=== PATIENT | male | born 1955 | race Caucasian/White ===

== ENCOUNTER 2017-09-17 17:17 | Inpatient (IN) | payer BC, MEDICARE ==
[~2017-09-17 17:17] MED LIST: ISOVUE-370 76%-LOCM 1 ML ONE
[2017-09-17 17:38] LABS: #Basophils 0.1 thou/uL (0.0-0.2); #Eosinphils 0.1 thou/uL (0.0-0.7); #Lymphocytes 2.4 thou/uL (1.20-3.40); #Monocytes 0.6 thou/uL (0.11-0.59); #Neutrophils 6.6 thou/uL (1.40-6.50); %Basophils 0.9 % (0.0-1.0); %Eosinophils 1.2 % (0.0-10.0); %Lymphocytes 24.2 % (21.0-51.0); %Monocytes 5.9 % (0.0-10.0); %Neutrophils 67.8 % (42.0-75.0); Hemoglobin 15.3 g/dL (14.0-18.0); Mean Corpuscular HGB CONC 33.7 g/dL (32.0-36.0); Mean Corpuscular Volume 91.8 fl (80.0-94.0); Mean Platelet Volume 9.2 fL (7.4-10.4); Platelet Count 232 thou/uL (130-400); RBC Distribution Width 12.1 % (11.5-14.5); Red Blood Cell (RBC) Count 4.94 mill/uL (4.70-6.10); White Blood Cell (WBC) Count 9.7 thou/uL (4.8-10.8)
[2017-09-17 17:46] LABS: Prothrombin Time 12.9 SEC (12.0-14.7)
[2017-09-17 17:56] LABS: ALT (SGPT) 48 U/L (8-55); AST (SGOT) 30 U/L (5-34); Alkaline Phosphatase 78 U/L (40-150); Anion Gap 14 mmol/L (10-20); BUN (Urea Nitrogen) 12 mg/dL (8.4-25.7); Bilirubin, Total 0.3 mg/dL (0.2-1.2); CK (CPK) 225 U/L (30-200); Calc. Creatinine Clearance 0 mL/min (70-130); Calcium 9.2 mg/dL (7.8-10.44); Carbon Dioxide 22 mmol/L (23-31); Chloride 104 mmol/L (98-107); Estimated GFR-MDRD 85; Globulin 3.1 g/dL (2.4-3.5); Glucose 104 mg/dL (80-115); Lipase 94 U/L (8-78); Protein, Total 7.1 g/dL (5.8-8.1); Sodium 136 mmol/L (136-145)
[2017-09-17 17:58] LABS: CKMB 3.7 ng/mL (0-6.6); Troponin I Less than 0.010 ng/mL (< 0.028)
--- NOTE | 2017-09-17 18:18 | RAD ---
PORTABLE CHEST: 09/17/17 HISTORY: Stroke alert. Lungs show no evidence of infiltrate. Heart size is mildly prominent. No evidence of vascular congest ion or edema. IMPRESSION: No acute process. POS: [facility]
[2017-09-17] MEDS ORDERED: Aspirin 300 MG Suppository ONE (18:19)
[2017-09-17 18:49] LABS: Bilirubin Negative (Negative); Blood, Urine Negative (Negative); Clarity CLEAR (Clear); Glucose, Urine (Dipstick) Negative (Negative); Leukocyte Negative (Negative); Nitrite Negative (Negative); Protein, Urine (Dipstick) Negative (Neg-Trace); Specific Gravity, Urine 1.025 (1.002-1.036); Urobilinogen 0.2 mg/dL (0.2-1.0); pH, Urine 6.5 (5.0-9.0)
[2017-09-17 18:54] LABS: Acetaminophen Less than 6.0 mcg/mL (10.0-30.0); Alcohol Less than 10 mg/dL (Less than 10); Salicylate Less than 8.0 mg/dL (15.0-30.0)
[2017-09-17 19:01] LABS: Amphetamine Detected (NotDetected); Barbiturates Screen Not Detected (NotDetected); Benzodiazepine Screen Not Detected (NotDetected); Cocaine Metabolite Screen Not Detected (NotDetected); Medtox Control Line Valid? VALID (VALID); Medtox Reader # READER 1; Methadone Not Detected (NotDetected); Methamphetamine Not Detected (NotDetected); Opiate Screen Not Detected (NotDetected); Oxycodone Screen Not Detected (NotDetected); Phencyclidine (PCP) Not Detected (NotDetected); THC/Cannabinoid Screen Not Detected (NotDetected); Tricyclic Screen Not Detected (NotDetected)
--- NOTE | 2017-09-17 19:09 | CT ---
CT HEAD WITHOUT CONTRAST: 09/17/17 Multiple axial tomograms obtained through the head without IV enhancement. HISTORY: Right side weakness. Stroke alert. FINDINGS: Ventricles have normal size and position. There is increased density in one portion of the left MCA w hich is suspicious for hyperdense MCA sign. There may be some subtle change in the insular cortex on the left. Recommend further investigation with emergent MRI. IMPRESSION: Question hyperdense left MCA sign and some questionable changes in the region of the insular cortex. Findings relayed to Dr. Massey at 5:35 p.m. POS: [facility]
--- NOTE | 2017-09-17 19:54 | CT ---
CT ANGIO OF NECK WITH CONTRAST 09/17/17 Multiple axial tomograms obtained through the neck with IV enhancement following angio protocol. Mul tiplanar reconstructions with 3D post processing. HISTORY: Right side weakness. Possible stroke. FINDINGS: Arch vessels appear unremarkable. Left common carotid is patent. There is occlusion of the left internal carotid artery at its origin. There is no flow in the extracranial left ICA. There is reconstitution of the left ICA at the caverno us sinus. Right common carotid and right internal carotid artery appear unremarkable. No stenosis or atheroscle rotic change. The vertebral arteries are patent and symmetric. IMPRESSION: Occlusion of the left internal carotid artery at its origin. CT ANGIO HEAD: Multiple axial tomograms obtained through head with angio protocol. Multiplanar reconstruction and 3D post processing. HISTORY: Right side weakness. Stroke protocol. FINDINGS: Both middle cerebral arteries are opacified. There is slightly decreased flow in the left, although t he left M1 and M2 segments are visualized apparently due to an intact [place] which reconsti tutes the left distal ICA within the cavernous sinus. Anterior cerebral arteries, posterior cerebral arteries, and basilar artery otherwise appear unremark able. IMPRESSION: Occlusion of the left ICA. The proximal intracranial portion of the left ICA is also occluded. There is reconstitution of the left ICA at the cavernous sinus. The left anterior cerebral and middle cereb ral arteries are opacified, although slightly decreased flow compared to the right side. The findings would indicate an intact [place] perfusing the left side. CT PERFUSION OF HEAD: CT perfusion shows abnormality. The mean transit time shows decreased flow in the left cerebral hemis phere indicating a large area of ischemia involving the left frontal lobe centered in the region of t he insular cortex. There is some left parietal lobe involvement. The blood volume shows an area of abnormality in the left cerebral hemisphere primarily at the region of the insular cortex and with some extension into the left frontal lobe and left periventricular re gion. This would indicate the area of infarct. the mean transit indicates ischemia and there is a lar ge area of ischemia involving almost the entire left cerebral hemisphere indicating a very large penu mbra. These findings were discussed with Dr. Patel. POS: [facility]
[2017-09-17] MEDS ORDERED: Ondansetron ODT 4 MG TAB SL PRN (21:38)
[2017-09-17] MEDS ORDERED: Ondansetron HCl/PF 4 MG/2 ML Vial IVP PRN ×2 (21:38→21:43)
[2017-09-17] MEDS ORDERED: Acetaminophen 650 MG Suppository PR PRN (21:43)
--- NOTE | 2017-09-17 21:48 | HP ---
PRIMARY CARE PHYSICIAN: Ankit Che M.D. CHIEF COMPLAINT: Down on the floor, not responsive. HISTORY OF PRESENT ILLNESS: The history of present illness is taken from the patient's who is a t the bedside. The patient is aphasic and cannot give me any history. According to the , the pa tient was normal as of about 12:30 today. The patient's grandchildren had come in to check on him an d found him on the floor around 4:30. He was sitting on the floor and he was not responding or commu nicating. For this reason, they called EMS and he was brought to the hospital. In the ER, a CT scan of the brain was done and there was no evidence of any bleed; however, there was concern for stroke and he had a CT perfusion done as well as a CT angiogram. It was found that he had what looked like an extensive clot in the left internal carotid artery. A stroke alert was done and Neurosurgery was consulted. The films were reviewed by Dr. Patel and it was felt that he unfortunately was not a cand idate for emergency procedure of thrombectomy and he is being admitted. When asked if he was having any problems prior to this event, the says the only thing that she noted is that he seems to get tired in the early afternoon and that he periodically will have some loose stool and was recently pu t on some antibiotics by Dr. Mcduffie, but other than that, she does not know that he was having any pr oblems. REVIEW OF SYSTEMS: Unobtainable as the patient is aphasic. PAST MEDICAL HISTORY: Taken from previous records as well as discussion with the patient's and includes hypertension, depression, and anxiety. PAST SURGICAL HISTORY: He has had a history of intestinal obstruction, a left rotator cuff repair. ALLERGIES: No known drug allergies. SOCIAL HISTORY: He is , has 3 children. He is retired from [employer]. He smokes about a pac k a day for about 5 years. Denies any alcohol use. CODE STATUS: FULL CODE. FAMILY HISTORY: Significant for heart disease and diabetes. CURRENT MEDICATIONS: Include Adderall twice a day, trazodone 100 mg daily, lisinopril/hydrochlorothi azide 10/12.5 daily, liothyronine 25 mcg daily, amitriptyline 50 mg daily, Viagra 100 mg as needed an d bupropion XL 300 mg daily. PHYSICAL EXAMINATION: GENERAL: He is awake and alert. He is well developed and well nourished. VITAL SIGNS: The blood pressure was 110/79, heart rate 76, respiratory rate of 18, temperature is 98 .6. HEENT: His pupils are equal, round, and reactive. Extraocular muscles are intact. His sclerae are anicteric. His tympanic membranes pearly smith. There is no fluid behind the drums. No redness. Th roat, no erythema. Uvula is midline. NECK: There is no adenopathy, no bruits. LUNGS: Clear except for some upper airway noise as well as some rhonchi. CARDIOVASCULAR: He has a normal S1 and S2. I do not appreciate an S3 or S4. No murmurs, clicks or rubs. ABDOMEN: Soft, nontender, nondistended. Positive for bowel sounds. No rebound or guarding. EXTREMITIES: There is no clubbing, cyanosis. No edema. He has got some hammertoe deformity. NEUROLOGIC: He is aphasic. He is not speaking, and when he does speak, it is garbled and unintellig ible. It appears to be some right-sided neglect. He is able to grab with the right hand, but it is very weak and the patient has significant weakness in the right upper as well as the right lower extr emity. His reflexes are diminished on the right, normal on the left. There is no Babinski. LABORATORY RESULTS: White blood cell count was 9.7, hemoglobin 15.3, hematocrit 45.4, platelet count is 232. INR 1.0. Sodium is 136, potassium 4.0, chloride is 104, CO2 is 22, BUN of 12, creatinine 0 .91, glucose is 104. Urinalysis was negative. ASSESSMENT AND PLAN: This is a 62-year-old gentleman that has the sudden onset of aphasia and right- sided weakness. CTA demonstrated a thrombus in the left internal carotid artery, the official readin g of which is still pending. The patient less likely has an acute ischemic stroke. He will be admit callum to the [facility]. 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 Therefore, he will need to be treated conser vatively. Aspirin has already been started in the ER. He will be left n.p.o. until he can be evalua callum by Speech Therapy. Aspirin will be given rectally. Physical Therapy and Occupational Therapy wi ll be consulted. We will allow for permissive hypertension and also consult Neurology as well as get an MRI and echo and further recommendations will be based on the patient's clinical course.
[2017-09-17] MEDS: Sodium Chloride 0.9% 1,000 ML IV SCH (22:10)
[2017-09-17] MEDS ORDERED: Famotidine/PF 20 mg/2ml Vial SLOW IVP SCH (22:15)
[2017-09-18 04:45] LABS: Anion Gap 10 mmol/L (10-20); BUN (Urea Nitrogen) 12 mg/dL (8.4-25.7); Calc. Creatinine Clearance 192 mL/min (70-130); Calcium 8.8 mg/dL (7.8-10.44); Carbon Dioxide 26 mmol/L (23-31); Cardiac Risk 3.3 (Less than 4.5); Chloride 105 mmol/L (98-107); Cholesterol 150 mg/dl (< 200 Desired); Estimated GFR-MDRD Greater than 90; Glucose 108 mg/dL (80-115); HDL Cholesterol 46 mg/dL (>60 Neg Risk); LDL Cholesterol, Calculated 88 mg/dL; Sodium 137 mmol/L (136-145); Triglycerides 79 mg/dL (Less than 150)
[2017-09-18 04:47] LABS: #Basophils 0.1 thou/uL (0.0-0.2); #Eosinphils 0.1 thou/uL (0.0-0.7); #Lymphocytes 2.6 thou/uL (1.20-3.40); #Monocytes 0.7 thou/uL (0.11-0.59); #Neutrophils 5.6 thou/uL (1.40-6.50); %Basophils 0.6 % (0.0-1.0); %Eosinophils 0.8 % (0.0-10.0); %Monocytes 7.3 % (0.0-10.0); %Neutrophils 62.3 % (42.0-75.0); Hemoglobin 14.1 g/dL (14.0-18.0); Mean Corpuscular HGB CONC 33.5 g/dL (32.0-36.0); Mean Corpuscular Hemoglobin 30.6 pg (27.0-31.0); Mean Corpuscular Volume 91.3 fl (80.0-94.0); Mean Platelet Volume 9.5 fL (7.4-10.4); Platelet Count 211 thou/uL (130-400); Red Blood Cell (RBC) Count 4.62 mill/uL (4.70-6.10)
[2017-09-18] MEDS: Sodium Chloride 0.9% 1,000 ML IV SCH ×2 (05:14→15:53)
[2017-09-18] MEDS: Aspirin 300 MG Suppository PR SCH (08:09)
[2017-09-18] MEDS: Famotidine/PF 20 mg/2ml Vial SLOW IVP SCH ×2 (08:11→21:46)
[2017-09-18] MEDS: Enoxaparin Sodium 40 MG/0.4 ML SYRINGE SC SCH (08:11)
[2017-09-18] MEDS ORDERED: Aspirin 325 MG TAB PO SCH (09:00)
--- NOTE | 2017-09-18 09:07 | CON ---
DATE OF CONSULTATION: 09/18/2017 REASON FOR CONSULTATION: [facility] mentor consultation for stay. HISTORY OF PRESENT ILLNESS: This is a 62-year-old male, who presented yesterday with acute right-jackie ed hemiparesis from an occluded left internal carotid. He is aphasic. Symptoms occurred sometime ye afternoon. He presented outside the window that would be appropriate for thrombolysis. PAST MEDICAL HISTORY: Hypertension, depression, anxiety. PAST SURGICAL HISTORY: Intestinal obstruction surgery and left rotator cuff repair. ALLERGIES: None. SOCIAL HISTORY: Smokes a pack a day. Retired from [employer]. No alcohol consumption or illicit nicolas g use. FAMILY MEDICAL HISTORY: Remarkable for heart disease and diabetes. MEDICATIONS: Prior to admission, Adderall, trazodone, lisinopril/hydrochlorothiazide, liothyronine, amitriptyline, Viagra, bupropion. REVIEW OF SYSTEMS: Twelve-point review of systems otherwise negative. PHYSICAL EXAMINATION: VITAL SIGNS: Temperature 98.8, pulse 78, respiratory rate 20, O2 sat 98%, blood pressure 160/92. GENERAL: He is awake and alert. NEUROLOGICAL: He is aphasic. He does mutter some words. He has right arm paralysis. He is able to move his right leg when withdrawing for pain. His left side is appropriate. He has sensory deficits in the right upper extremity. HEENT: Pupils react. Sclerae anicteric. Oropharynx clear. NECK: No adenopathy or JVD. No bruits audible. CARDIOVASCULAR: S1 and S2, regular. ABDOMEN: Soft and nontender. LUNGS: Clear. EXTREMITIES: No edema. LABORATORY DATA: White blood cell count 9, hematocrit 42, platelet count 211. Sodium 137, potassium 4, chloride 105, CO2 of 26, BUN 12, creatinine 0.7, glucose 108. ASSESSMENT: Stroke. PLAN: Can transfer to the stroke unit, mainly a rehabilitative issue at this point. Neurology has b een consulted. The patient remains on aspirin. No pulmonary intervention needed. We will sign off. Please recall if further assistance needed.
--- NOTE | 2017-09-18 09:42 | PDOC.PN ---
- Subjective Encounter Start Date: 09/18/17 Encounter Start Time: 09:40 Mr. Cerrato was seen today in follow-up. He is less anxious this morning. He was able to follow commands a bit better this morning. - Objective Resuscitation Status: Resuscitation Status FULL:Full Resuscitation MAR Reviewed: Yes Vital Signs & Weight: Vital Signs (12 hours) Temp Pulse Resp BP Pulse Ox 09/18/17 08:00 98.8 F 78 20 98 09/18/17 07:25 98.8 F 78 20 160/92 H 98 09/18/17 04:14 97.7 F 72 18 142/82 H 99 09/18/17 00:03 98.5 F 73 18 138/78 98 Weight Weight 301 lb 1 oz I&O: 09/17/17 09/18/17 09/19/17 06:59 06:59 06:59 Intake Total 1080 Balance 1080 Result Diagrams: 09/18/17 03:09 09/18/17 03:09 Phys Exam - Physical Examination HEENT: PERRLA Respiratory: no wheezing, no rales, no rhonchi, clear to auscultation bilateral Cardiovascular: RRR, no significant murmur, no rub Gastrointestinal: soft, non-tender, no distention Musculoskeletal: no edema + right sided weakness and a bit of neglect aphasia, and ? dysphagia Dx/Plan (1) Acute left ICA ischemic stroke Code(s): I63.232 - CEREB INFRC DUE TO UNSP OCCLS OR STENOS OF LEFT CAROTID ART Status: Acute (2) Dyslipidemia Code(s): E78.5 - HYPERLIPIDEMIA, UNSPECIFIED Status: Acute (3) HTN (hypertension) Code(s): I10 - ESSENTIAL (PRIMARY) HYPERTENSION Status: Chronic Qualifiers: Hypertension type: essential hypertension Qualified Code(s): I10 - Essential (primary) hypertension - Plan * Acute Left ICA CVA- Mr. Cerrato has significant deficits with right sided weakness and aphasia * Continue aspirin rectally * Will await Speech Therapy recommendations * HTN- will allow some permissive Hypertension in the next few days * He can be moved out of the [facility].
[2017-09-18] MEDS ORDERED: Lorazepam 2 MG/ML VIAL SLOW IVP PRN (15:14)
--- NOTE | 2017-09-18 23:29 | CON ---
DATE OF CONSULTATION: 09/18/2017. REFERRING PROVIDER: Yaakov Beltran MD REASON FOR CONSULTATION: Acute right hemiparesis and aphasia. HISTORY OF PRESENT ILLNESS: Mr. Cerrato is a pleasant 62-year-old male who has been consult ed for evaluation of acute onset right hemiparesis and aphasia. History was obtained from , who was present at bedside. reports that yesterday around 12 or 12:30, he was in his normal state o f health. Around 4:30 in the afternoon, his grandchildren found him sitting on the floor unable to c ommunicate and unable to move his right side, which prompted them to call the EMS and the patient was brought to the [facility]. On arrival to the emergency room, he was noted to have ap hasia along with right hemiparesis. Stroke alert was initiated at that time. Given that his symptom last time well known was more than 4-1/2 hours, he was not a candidate for IV tPA. He did have a CT angiogram of the head and neck done along with CT perfusion done, which showed left ICA occlusion at its origin. CT perfusion showed large penumbra on the left MCA. The patient was discussed with Dr. Patel regarding endovascular therapy, who stated that the patient was not a candidate for thrombecto my. The patient is now being admitted for further workup and management of his stroke. According to , he is able to form few syllables, which he was not able to do yesterday. There is no improvem ent in his strength in the right upper or right lower extremity. He has not complained of any headac he, chest pain, palpitation. PAST MEDICAL HISTORY: Significant for hypertension. PAST SURGICAL HISTORY: Significant for left rotator cuff repair. SOCIAL HISTORY: He is and has 3 children. He is retired from [employer]. He smokes about a pack per day. He denies alcohol use. He does not have any history of illicit drug use. FAMILY HISTORY: Significant for heart disease and diabetes. CURRENT MEDICATIONS: Please review MAR. ALLERGIES: No known drug allergies. REVIEW OF SYSTEMS: Unable to perform. PHYSICAL EXAMINATION: VITAL SIGNS: Blood pressure of 146/74, pulse of 79, temperature of 98.5, respirations of 19, O2 sats of 96% on room air. GENERAL: Well-developed, well-nourished male resting in bed in no apparent distress. RESPIRATORY: Clear to auscultation bilaterally. CARDIOVASCULAR: Regular rate and rhythm. NEUROLOGIC: Mental status: The patient is awake and alert, but nonverbal. Speech and language: He has expressive more than receptive aphasia. Cranial nerves: Pupils are 3 mm and reactive. Visual gerardo are full to threat. Extraocular muscles are intact. No nystagmus is noted. There is no gaze deviation noted. There is a right facial droop noted. Tongue and uvula are midline. Motor exam sh owed flaccid right upper and right lower extremity. There is a 0/5 strength in the right upper and r ight lower extremities. Strength in the left upper and left lower extremity is 5/5. Sensory: Sensa tion, he withdraws to nail bed pressure on the right lower extremity, but not to the right upper extr emity. Deep tendon reflexes: Brisk reflexes in the right upper and right lower extremity. Babinski : Extension on the right and flexion on the left. Gait, Romberg, and coordination could not be test ed. LABORATORY DATA: Labs are reviewed, which included CBC, coag panel, CMP, lipid profile, urinalysis, and urine drug screen, which is significant for urine drug screen positive for amphetamines, otherwis e unremarkable. IMAGING STUDIES: CT head without contrast was reviewed, which showed no acute intracranial abnormali ties. CT angiogram of the head and neck and CT perfusion scan results were reviewed, which showed oc clusion of the left ICA. CT perfusion scan showed some area of infarction on the left MCA with a lar ge penumbra. IMPRESSION: 1. Large left middle cerebral artery acute ischemic attack. 2. Hypertension. 3. Aphasia, due to large left middle cerebral artery acute ischemic attack. 4. Right hemiparesis due to large left middle cerebral artery acute ischemic attack. PLAN: Mr. Cerrato is a pleasant 62-year-old male who presented with an acute onset of right hemiparesis and aphasia. He is found to have left ICA occlusion resulting in left MCA stroke. At t his time, I will recommend obtaining echocardiogram. I would recommend consulting PT, OT, speech the rapy. He needs to be started on aspirin 300 mg suppository, which can be switched to 325 mg orally o n a daily basis. Continue current medical management. Continue supportive care. Thank you for consultation.
[2017-09-19] MEDS: Sodium Chloride 0.9% 1,000 ML IV SCH ×3 (01:50→16:17)
[2017-09-19] MEDS: Aspirin 300 MG Suppository PR SCH (09:38)
[2017-09-19] MEDS: Enoxaparin Sodium 40 MG/0.4 ML SYRINGE SC SCH (09:39)
[2017-09-19] MEDS: Famotidine/PF 20 mg/2ml Vial SLOW IVP SCH ×2 (12:13→20:35)
--- NOTE | 2017-09-19 13:14 | PDOC.PN ---
- Subjective Encounter Start Date: 09/19/17 Encounter Start Time: 13:09 -: non-verbal Mr. Cerrato was seen today in follow-up. He still has difficulty with speech. He indicates no headache, chest pain ect. - Objective Resuscitation Status: Resuscitation Status FULL:Full Resuscitation MAR Reviewed: Yes Vital Signs & Weight: Vital Signs (12 hours) Temp Pulse Pulse Pulse Resp BP BP 09/19/17 12:00 98.2 F 67 18 09/19/17 09:39 60 64 127/79 146/93 H 09/19/17 08:30 98.3 F 67 18 09/19/17 08:00 98.3 F 67 18 09/19/17 05:00 98.0 F 73 18 BP Pulse Ox 09/19/17 12:00 146/87 H 92 L 09/19/17 09:39 09/19/17 08:30 93 L 09/19/17 08:00 142/90 H 93 L 09/19/17 05:00 184/100 H 93 L Weight Admit Weight 301 lb 1 oz Weight 301 lb 1 oz I&O: 09/18/17 09/19/17 09/20/17 06:59 06:59 06:59 Intake Total 1080 2837.5 Output Total 2825 950 Balance 1080 12.5 -950 Result Diagrams: 09/18/17 03:09 09/18/17 03:09 Phys Exam - Physical Examination HEENT: PERRLA Respiratory: no wheezing, no rales, no rhonchi, clear to auscultation bilateral Cardiovascular: RRR, no significant murmur Gastrointestinal: soft, non-tender, positive bowel sounds Musculoskeletal: no edema Dx/Plan (1) Acute left ICA ischemic stroke Code(s): I63.232 - CEREB INFRC DUE TO UNSP OCCLS OR STENOS OF LEFT CAROTID ART Status: Acute (2) Dyslipidemia Code(s): E78.5 - HYPERLIPIDEMIA, UNSPECIFIED Status: Acute (3) HTN (hypertension) Code(s): I10 - ESSENTIAL (PRIMARY) HYPERTENSION Status: Chronic Qualifiers: Hypertension type: essential hypertension Qualified Code(s): I10 - Essential (primary) hypertension - Plan * Acute Left MCA CVA- with aphasia, and right hemiplegia- continue aspirin * Dysphagia- he is still not safe to take in any oral nutrition- will start PPN * HTN- blood pressure is elevated, but trending down * Dylipidemia- will start statin once able * Echo results noted * MRI is pending * Jose PT/OT.
[2017-09-19] MEDS ORDERED: D10W AA 8.5% With Lytes 1000 ML BAG IV SCH (13:30)
[2017-09-19] MEDS ORDERED: Lorazepam 2 MG/ML VIAL SLOW IVP PRN (13:34)
--- NOTE | 2017-09-19 16:11 | MRI ---
BRAIN MRI NONCONTRAST: CLINICAL HISTORY: Right side weakness. COMPARISON: Reference is made to prior head CT 09/17/17. FINDINGS: There is a moderate-sized region of restricted diffusion centered at the left basal ganglia, anterior left kraft radiata, and within the anterior aspect of the left insula. In addition, there are [place] foci of restriction within the left centrum semiovale. There is a diminished left ICA flow void and an asymmetrically diminutive left MCA flow void. There is no significant intracranial hemorrhag e. No midline shift. There is mild effacement of the left lateral ventricle from mass effect due to cytoxic edema. Scattered paranasal sinus mucosal thickening is present. IMPRESSION: Moderate-sized acute infarction of the left basal ganglia, left insula, and left kraft radiata. The re is superimposed multifocal punctate restricted diffusion of the left cerebral hemisphere. These f indings are within the distribution of abnormality on preceeding CT perfusion exam. POS: [facility]
[2017-09-19] MEDS: PPN Hyperalimentation 1,000 ML IV SCH (16:14)
[2017-09-20] MEDS: Sodium Chloride 0.9% 1,000 ML IV SCH ×2 (04:30→17:00)
[2017-09-20] MEDS: Famotidine/PF 20 mg/2ml Vial SLOW IVP SCH ×2 (10:01→19:42)
[2017-09-20] MEDS: Aspirin 300 MG Suppository PR SCH (10:03)
--- NOTE | 2017-09-20 13:50 | RAD ---
MODIFIED BARIUM SWALLOW IN THE PRESENCE OF A SPEECH THERAPIST: Date: 09/20/17 HISTORY: CVA. Feeding difficulty. FINDINGS/IMPRESSION: There is laryngeal penetration and aspiration. There is residue in the piriform sinus and vallcula. Please see recommendations of the speech therapist for further management. POS: [facility]
[2017-09-20] MEDS: PPN Hyperalimentation 1,000 ML IV SCH (15:21)
--- NOTE | 2017-09-20 16:19 | PDOC.PN ---
- Subjective Encounter Start Date: 09/20/17 Encounter Start Time: 16:18 Mr. Cerrato was seen in follow-up. He is aphasic. His has left the bedside. Modified Barium Swallow results were noted. - Objective Resuscitation Status: Resuscitation Status FULL:Full Resuscitation MAR Reviewed: Yes Vital Signs & Weight: Vital Signs (12 hours) Temp Pulse Resp BP Pulse Ox 09/20/17 15:49 98.5 F 60 22 H 140/85 93 L 09/20/17 12:00 98.5 F 73 18 163/105 H 94 L 09/20/17 08:30 97.4 F L 62 18 92 L Weight Admit Weight 301 lb 1 oz Weight 301 lb 1 oz I&O: 09/19/17 09/20/17 09/21/17 06:59 06:59 06:59 Intake Total 2837.5 1368 Output Total 2825 2350 900 Balance 12.5 -982 -900 Result Diagrams: 09/18/17 03:09 09/18/17 03:09 Phys Exam - Physical Examination HEENT: PERRLA Respiratory: no wheezing, no rales, no rhonchi, clear to auscultation bilateral Cardiovascular: RRR, no significant murmur Gastrointestinal: soft, non-tender, positive bowel sounds Musculoskeletal: no edema Dx/Plan (1) Acute left ICA ischemic stroke Code(s): I63.232 - CEREB INFRC DUE TO UNSP OCCLS OR STENOS OF LEFT CAROTID ART Status: Acute (2) Dyslipidemia Code(s): E78.5 - HYPERLIPIDEMIA, UNSPECIFIED Status: Acute (3) HTN (hypertension) Code(s): I10 - ESSENTIAL (PRIMARY) HYPERTENSION Status: Chronic Qualifiers: Hypertension type: essential hypertension Qualified Code(s): I10 - Essential (primary) hypertension - Plan * Acute L basal Gangion , Left Insular, and Left kraft radiata CVA- Continue aspirin thrapy * Dysphagia- discussed with Speech Therapy- He has considerable risk for aspiration- will continue PPN for now, and will discuss with his , how to proceed going forward * HTN - blood pressure is trending down * Continue PT/OT.
[2017-09-21] MEDS: Aspirin 300 MG Suppository PR SCH (08:51)
[2017-09-21] MEDS: Sodium Chloride 0.9% 1,000 ML IV SCH ×2 (08:51→22:45)
[2017-09-21] MEDS: Famotidine/PF 20 mg/2ml Vial SLOW IVP SCH ×2 (10:01→20:08)
--- NOTE | 2017-09-21 11:42 | PDOC.PN ---
- Subjective Encounter Start Date: 09/21/17 Encounter Start Time: 11:40 Mr. Cerrato was seen today in follow-up. He is saying a few more words according tohis who is at the bedside. He indicates by shaking and nodding his head that there is no headache, chest pain or difficulty breathing - Objective Resuscitation Status: Resuscitation Status FULL:Full Resuscitation MAR Reviewed: Yes Vital Signs & Weight: Vital Signs (12 hours) Temp Pulse Resp BP BP Pulse Ox 09/21/17 11:23 97.9 F 77 18 141/89 H 91 L 09/21/17 08:00 98.1 F 68 20 09/21/17 07:20 98.1 F 68 20 150/88 H 92 L 09/21/17 03:15 96.1 F L 61 24 H 135/89 96 Weight Admit Weight 301 lb 1 oz Weight 298 lb 11.2 oz I&O: 09/20/17 09/21/17 09/22/17 06:59 06:59 06:59 Intake Total 1368 1380 Output Total 2350 2650 Balance -982 -1270 Result Diagrams: 09/18/17 03:09 09/18/17 03:09 Phys Exam - Physical Examination HEENT: PERRLA Respiratory: no wheezing, no rales, no rhonchi, clear to auscultation bilateral Cardiovascular: RRR, no significant murmur, no rub Gastrointestinal: soft, non-tender, positive bowel sounds Musculoskeletal: no edema + right sided weakness Dx/Plan (1) Acute left ICA ischemic stroke Code(s): I63.232 - CEREB INFRC DUE TO UNSP OCCLS OR STENOS OF LEFT CAROTID ART Status: Acute (2) Dyslipidemia Code(s): E78.5 - HYPERLIPIDEMIA, UNSPECIFIED Status: Acute (3) HTN (hypertension) Code(s): I10 - ESSENTIAL (PRIMARY) HYPERTENSION Status: Chronic Qualifiers: Hypertension type: essential hypertension Qualified Code(s): I10 - Essential (primary) hypertension - Plan * Acute CVA with Dysphagia- continue aspirin rectally * I spoke with the patient and his who is at bedside about the dysphagia, and how to proceed * They both would like to proceed with PEG tube placement * HTN- blood pressure is controlled * Continue PT/OT * Will consult GI.
[2017-09-21] MEDS: PPN Hyperalimentation 1,000 ML IV SCH (15:12)
--- NOTE | 2017-09-21 23:59 | CON ---
DATE OF CONSULTATION: 09/21/2017 REFERRING DOCTOR: [facility] Yaakov Beltran[facility] REASON FOR CONSULTATION: Evaluate the patient for endoscopic gastrostomy tube placement. HISTORY OF PRESENT ILLNESS: Mr. Shane Cerrato is a 62-year-old male with muscular and wel l-built male. He has a history of hypertension and he was found to be lying on the floor a t home and was brought to the ER. It was best discovered that he has had acute cerebrovascular accid ent with right-sided weakness and aphasia. Since admission, his mental status has improved. He is a wake and does seem to understand the questions by nodding. He was seen in the room along with his wi fe. The patient apparently has had no TIA or any kind of mild stroke in the past, it is something hall dden. The patient Neurosurgery and also his neurologist. The patient is unable to swallow ve ry well. It was felt the patient is on nutritional support and also the patient got the EGD and PEG tube placed. The patient's tells me that he has been very healthy and got some mild GI disorder recently. He has been having some loose stools and some dyspepsia recently. He was seen by Dr. Briseyda Mcduffie recently and was placed on probiotics. The symptoms actually resolved at the present time. He is not having any GI disorder. The patient has no other relevant history. ALLERGIES: None. SOCIAL HISTORY: The patient is . He smokes a packet of cigarettes per day. No history of al cohol abuse. MEDICAL ILLNESSES: 1. Hypertension. 2. Depression, anxiety. SURGERIES: 1. Status post left rotator cuff repair. 2. Surgery for bowel obstruction in the past. FAMILY HISTORY: Hypertension, heart disease, diabetes. REVIEW OF SYSTEMS: Unremarkable. PHYSICAL EXAMINATION: GENERAL: This is very muscular well-built male who appears very comfortable. He is awake and does respond to questions and able to talk a few words. VITAL SIGNS: Afebrile, pulse is 63, blood pressure 146/82. HEENT: Conjunctivae clear. NECK: Supple. LUNGS: Within normal limits. ABDOMEN: Soft to palpate. Abdomen is nontender. No organomegaly or masses. EXTREMITIES: Showed no edema. NEUROLOGIC: He has some right hemiplegia and also has some mild aphasia. LABORATORY DATA: On 09/18/2017, WBC 9000, hemoglobin 14.1, hematocrit 42.1, MCV 93.3, platelet count 211,000, polymorphs 62, lymphocytes 29. Serum chemistries: Sodium is 137, potassium 4, chloride 10 5, bicarbonate 26, BUN is 12, creatinine is 0.78, glucose is 108, calcium is 8.8. Triglycerides 79, cholesterol is 150. TSH 1.6541, prolactin 5.74. CLINICAL IMPRESSION: A 62-year-old male with acute cerebrovascular accident with right hem iplegia and aphasia. His clinical condition improves a lot since admission. He is more awake and re sponsive and communicative to some extent. I had a talk with his and the patient and explained about the procedure. the patient. The patient is agreeable. I will plan for EGD and PEG tube placement tomorrow.
[2017-09-22] MEDS ORDERED: CEFAZOLIN/Water 2 GM/20 ML SYRINGE ONE (08:33)
[2017-09-22] MEDS ORDERED: Ondansetron HCl/PF 4 MG/2 ML Vial IVP PRN (09:31)
[2017-09-22] MEDS ORDERED: Pancrelipase DR 12000 1 CAP FS PRN (10:13)
[2017-09-22] MEDS ORDERED: Sodium Bicarbonate Tab 325 MG TAB PER TUBE PRN (10:13)
[2017-09-22] MEDS: Aspirin 300 MG Suppository PR SCH (10:15)
[2017-09-22] MEDS: Famotidine/PF 20 mg/2ml Vial SLOW IVP SCH ×2 (10:15→21:15)
[2017-09-22] MEDS ORDERED: Morphine 5 MG/ML SYRINGE SLOW IVP PRN (13:38)
--- NOTE | 2017-09-22 13:50 | PDOC.PN ---
- Subjective Encounter Start Date: 09/22/17 Encounter Start Time: 13:49 Mr. Cerrato was see today in follow-up of large MCA CVA. He is back from PEg tube placement. He complains of pain at the site which was not relieved with Tylenol. His jason has been talking a bit more. - Objective Resuscitation Status: Resuscitation Status FULL:Full Resuscitation MAR Reviewed: Yes Vital Signs & Weight: Vital Signs (12 hours) Temp Pulse Resp BP Pulse Ox 09/22/17 11:01 98.4 F 56 L 18 160/81 H 94 L 09/22/17 08:00 98.9 F 50 L 18 142/84 H 93 L 09/22/17 04:51 98.3 F 53 L 20 149/87 H 97 Weight Admit Weight 301 lb 1 oz Weight 296 lb 4.8 oz I&O: 09/21/17 09/22/17 09/23/17 06:59 06:59 06:59 Intake Total 1380 1380 Output Total 2650 2250 Balance -1270 -870 Result Diagrams: 09/18/17 03:09 09/18/17 03:09 Phys Exam - Physical Examination HEENT: PERRLA Respiratory: no wheezing, no rales, no rhonchi, clear to auscultation bilateral Cardiovascular: RRR, no significant murmur Gastrointestinal: soft, non-tender, positive bowel sounds Musculoskeletal: no edema Dx/Plan (1) Acute left ICA ischemic stroke Code(s): I63.232 - CEREB INFRC DUE TO UNSP OCCLS OR STENOS OF LEFT CAROTID ART Status: Acute (2) Dyslipidemia Code(s): E78.5 - HYPERLIPIDEMIA, UNSPECIFIED Status: Acute (3) HTN (hypertension) Code(s): I10 - ESSENTIAL (PRIMARY) HYPERTENSION Status: Chronic Qualifiers: Hypertension type: essential hypertension Qualified Code(s): I10 - Essential (primary) hypertension - Plan * Acute CVA with Right Hemiparesis, and Dysphagia- Patient is s/p PEG tube placement * HTN- blood pressure was slightly elevated, but he has been in some pain- will monitor * Dyslipidemia- can start statin soon * Tobacco Abuse- discussed smoking cessation * Can consider transfer to Rehab soon.
[2017-09-22] MEDS: Morphine 5 MG/ML SYRINGE SLOW IVP PRN (14:29)
[2017-09-22] MEDS ORDERED: Propofol 200 MG/20 ML VIAL ONE (14:45)
[2017-09-22] MEDS ORDERED: Lidocaine 1% PF 5 ML VIAL ONE (14:45)
--- NOTE | 2017-09-22 15:58 | OP ---
DATE OF PROCEDURE: 09/22/2017 OPERATIVE PROCEDURES: 1. Esophagogastroduodenoscopy. 2. Endoscopic gastrostomy tube placement. PREOPERATIVE DIAGNOSES: Status post cerebrovascular accident and dysphagia. POSTOPERATIVE DIAGNOSES: 1. Multiple ulcers in the duodenal bulb with duodenitis. 2. Status post successful placement of gastrostomy tube. PROCEDURE NOTE: The patient was placed on his back and was given sedation by Anesthesia Department. The patient also was given IV Ancef 2 grams before the procedure. A bite block was placed. A Penta x video gastroscope under direct vision was passed down the oropharynx, past the gastroesophageal brit ction, into the stomach, and subsequently into the duodenum. The patient was found to have multiple ulcerations in the duodenal bulb with duodenitis. The stomach was completely free of any pathology. The fundus, cardia, gastric body, gastric antrum, no pathology seen. A gastrostomy tube site was ma rked by applying finger pressure over the abdominal wall. The site was marked. The site was cleaned and surgically prepped. The site was anesthetized with 1% Xylocaine infiltration. Over the site, a size 16 Angiocath was advanced into the stomach. Through the Angiocath, a guidewire was introduced into the stomach. The wire was grasped with polypectomy snare and pulled outside the mouth. To the end of the wire protruding outside the mouth, a gastrostomy tube was connected. The wire was pulled back retrograde and the tube left in place. There was mild oozing of blood at the puncture site when the wire was withdrawn. The bleeding was mild and persistent. After applying compression with gauz e, the bleeding actually stopped. The wire was pulled back retrograde and the tube left in place. T he patient rescoped again to confirm proper placement of G-tube. No bleeding or any pathology seen i n the stomach. The stomach was decompressed and the scope removed. RECOMMENDATIONS: 1. He is on famotidine 20 mg IV push every 12 hours. We shall probably change him to pantoprazole t hrough the G-tube 40 mg a day. 2. May start tube feeding later on this afternoon.
[2017-09-22] MEDS: PPN Hyperalimentation 1,000 ML IV SCH (16:43)
[2017-09-22] MEDS: Sodium Chloride 0.9% 1,000 ML IV SCH (19:45)
[2017-09-23] MEDS: Morphine 5 MG/ML SYRINGE SLOW IVP PRN (05:23)
[2017-09-23] MEDS: Famotidine/PF 20 mg/2ml Vial SLOW IVP SCH ×2 (08:58→21:43)
[2017-09-23] MEDS: Aspirin 300 MG Suppository PR SCH (08:58)
[2017-09-23] MEDS: Sodium Chloride 0.9% 1,000 ML IV SCH ×2 (10:03→21:48)
--- NOTE | 2017-09-23 11:27 | PDOC.PN ---
- Subjective Encounter Start Date: 09/23/17 Encounter Start Time: 11:25 Mr. Cerrato was seen today in follow-up. He is speaking more. He indicates that the abdominal pain has improved, from the PEG tube placement. - Objective Resuscitation Status: Resuscitation Status FULL:Full Resuscitation MAR Reviewed: Yes Vital Signs & Weight: Vital Signs (12 hours) Temp Pulse Resp BP Pulse Ox 09/23/17 08:00 98.5 F 68 24 H 128/67 91 L 09/23/17 05:05 98.9 F 68 18 111/62 92 L Weight Admit Weight 301 lb 1 oz Weight 300 lb 12.8 oz I&O: 09/22/17 09/23/17 09/24/17 06:59 06:59 06:59 Intake Total 1380 2573 Output Total 2250 1275 Balance -870 1298 Result Diagrams: 09/18/17 03:09 09/18/17 03:09 Phys Exam - Physical Examination HEENT: PERRLA Respiratory: no wheezing, no rales, no rhonchi, clear to auscultation bilateral Cardiovascular: RRR, no significant murmur Gastrointestinal: soft, non-tender, positive bowel sounds Musculoskeletal: no edema Dx/Plan (1) Acute left ICA ischemic stroke Code(s): I63.232 - CEREB INFRC DUE TO UNSP OCCLS OR STENOS OF LEFT CAROTID ART Status: Acute (2) Dyslipidemia Code(s): E78.5 - HYPERLIPIDEMIA, UNSPECIFIED Status: Acute (3) HTN (hypertension) Code(s): I10 - ESSENTIAL (PRIMARY) HYPERTENSION Status: Chronic Qualifiers: Hypertension type: essential hypertension Qualified Code(s): I10 - Essential (primary) hypertension - Plan * Acute Left Basal Ganglia, Left Insular, and Left Art Radiata CVA with Right Hemiplegia, and Aphasia, and Dysphagia- Patient is waiting Rehab placement * He had PEG tube placement yesterday * Continue aspirin therapy * Can Add statin, and medication for blood pressure per PEG now * Smoking Cessation was discussed * Awaiting Rehab placement .
[2017-09-23] MEDS ORDERED: Acetaminophen 650 MG/20.3 ML UDCUP PER TUBE PRN (19:05)
[2017-09-23] MEDS ORDERED: HYDROcodone/Acetaminophen 5/325 mg Tablet PO PRN (19:06)
[2017-09-23] MEDS ORDERED: Azithromycin 500 MG in Sodium Chloride 0.9% 250 ML 250 ML IVPB SCH (19:15)
[2017-09-23] MEDS ORDERED: cefTRIAXone\\ROCEPHIN 2 GM in Sodium Chloride 0.9% 100 ML IVPB SCH (19:15)
[2017-09-23] MEDS ORDERED: traZODone HCl 50 MG TAB PO PRN (21:00)
[2017-09-23] MEDS: Rosuvastatin 5 MG TAB PER TUBE SCH (21:42)
--- NOTE | 2017-09-24 04:31 | PRG ---
DATE OF SERVICE: 09/23/2017 SUBJECTIVE: This is a 62-year-old male status post CVA with aphasia and weakness on right side. His speech is slowly coming back. He does utter a few words. He is also alert and oriented. He has had PEG tube placement done during this stay. The PEG tube site appears to be healthy. The . OBJECTIVE: ABDOMEN: Soft and nontender. RECOMMENDATIONS: 1. Increase the tube feeding as tolerated. 2. Pantoprazole 40 once a day because of ulcers in the duodenal bulb.
[2017-09-24] MEDS ORDERED: Lisinopril/Hydrochlorothiazide 10 mg/12.5 mg Tablet PO SCH (09:00)
[2017-09-24] MEDS: Aspirin 325 MG TAB PER TUBE SCH (09:55)
[2017-09-24] MEDS: Famotidine/PF 20 mg/2ml Vial SLOW IVP SCH ×2 (09:56→20:46)
[2017-09-24] MEDS: Lisinopril 10 MG TAB PER TUBE SCH (09:56)
[2017-09-24] MEDS: Sodium Chloride 0.9% 1,000 ML IV SCH (14:15)
--- NOTE | 2017-09-24 16:00 | PDOC.PN ---
- Subjective Encounter Start Date: 09/24/17 Encounter Start Time: 09:30 -: old records requested/rev Pt seen and examined, chart reviewed in its entirety, this is my first visit with this patient tp stable, no acute events overnight, denies pain, no f/C, no N/V/d/C, no CP or SOB awaiting insurance approval for HS rehab, already have medical acceptance 10 point ROS performed and neg for all systems except as above - Objective Resuscitation Status: Resuscitation Status FULL:Full Resuscitation MAR Reviewed: Yes Vital Signs & Weight: Vital Signs (12 hours) Temp Pulse Resp BP BP Pulse Ox 09/24/17 12:06 97.9 F 68 20 159/75 H 95 09/24/17 10:15 97.3 F L 65 22 H 164/84 H 91 L 09/24/17 07:43 98.6 F 65 18 91 L 09/24/17 04:00 98.6 F 65 18 156/87 H 97 Weight Admit Weight 301 lb 1 oz Weight 300 lb 12.8 oz I&O: 09/23/17 09/24/17 09/25/17 06:59 06:59 06:59 Intake Total 2573 2080 Output Total 1275 600 Balance 1298 1480 Result Diagrams: 09/18/17 03:09 09/18/17 03:09 Radiology Reviewed by me: Yes EKG Reviewed by me: Yes Phys Exam - Physical Examination Constitutional: NAD HEENT: PERRLA, moist MMs, sclera anicteric, oral pharynx no lesions Neck: no nodes, no JVD, supple, full ROM Respiratory: no wheezing, no rales, no rhonchi, clear to auscultation bilateral Cardiovascular: RRR, no significant murmur, no rub Gastrointestinal: soft, non-tender, no distention, positive bowel sounds Musculoskeletal: pulses present, edema present Neurological: normal sensation right vannessa-paresis Lymphatic: no nodes Psychiatric: normal affect, A&O x 3 Skin: no rash, normal turgor, cap refill <2 seconds Dx/Plan (1) Acute left ICA ischemic stroke Code(s): I63.232 - CEREB INFRC DUE TO UNSP OCCLS OR STENOS OF LEFT CAROTID ART Status: Acute Comment: antipaltelets, lipitor, rehab when approved (2) Dyslipidemia Code(s): E78.5 - HYPERLIPIDEMIA, UNSPECIFIED Status: Acute Comment: lipitor on discharge (3) Gastroenteritis Code(s): K52.9 - NONINFECTIVE GASTROENTERITIS AND COLITIS, UNSPECIFIED Status : Acute Comment: jejunitis, infectious (4) Anxiety and depression Code(s): F41.9 - ANXIETY DISORDER, UNSPECIFIED; F32.9 - MAJOR DEPRESSIVE DISORDER, SINGLE EPISODE, UNSPECIFIED Status: Chronic (5) HTN (hypertension) Code(s): I10 - ESSENTIAL (PRIMARY) HYPERTENSION Status: Chronic Qualifiers: Hypertension type: essential hypertension Qualified Code(s): I10 - Essential (primary) hypertension - Plan cont current plan of care, PT/OT, respiratory therapy * .
[2017-09-24] MEDS: Rosuvastatin 5 MG TAB PER TUBE SCH (20:46)
[2017-09-25] MEDS: Sodium Chloride 0.9% 1,000 ML IV SCH ×2 (03:25→16:26)
[2017-09-25] MEDS: Aspirin 325 MG TAB PER TUBE SCH (09:42)
[2017-09-25] MEDS: Lisinopril 10 MG TAB PER TUBE SCH (09:42)
[2017-09-25] MEDS: Famotidine/PF 20 mg/2ml Vial SLOW IVP SCH (09:43)
[2017-09-25 10:41] VITALS: BMI 34.6
--- NOTE | 2017-09-25 14:35 | DIS ---
PRIMARY CARE PHYSICIAN: Ankit Che M.D. DATE OF ADMISSION: 09/17/2017 DATE OF DISCHARGE: 09/25/2017 DISCHARGE DIAGNOSES: 1. Acute left middle cerebral artery distribution ischemic stroke. 2. Oropharyngeal dysphagia. 3. Status post PEG tube placement. 4. Essential hypertension. 5. Anxiety and depression 6. Hyperlipidemia. 7. Acute gastroenteritis. CONSULTATIONS: 1. Pulmonary and Critical Care, Dr. Donaldo Marlow. 2. Neurology, Dr. Simran Rossi. 3. Gastroenterology, Dr. Car. PROCEDURES: 1. 09/22/2017; endoscopic gastrostomy tube placement and EGD revealing multiple ulcers in the duoden al bulb with duodenitis and successful placement of gastrostomy tube. 2. Brain MRI 09/19/2017 showed a moderate sized acute infarction of the left basal ganglia, left ins tameka, left kraft radiata, superimposed multifocal punctate restricted diffusion of the left cerebral hemisphere consistent with middle cerebral artery distribution cerebrovascular accident. HISTORY AND PHYSICAL: Shane Cerrato is a 62-year-old white male with the above history who presents to the emergency department on 09/17/2017 after being found on the floor unresponsive. The patient was unable to give any history to the admitting physician or the ER physician. The patient was mika l around 12:30 the day of admit, around 4:30 p.m. he was found on the floor. EMS was activated and b rought to the emergency department. In the ER, CT scan was done that showed no evidence of bleed, but there was a concern for left hemisp heric stroke. Neurosurgery was consulted and is not a candidate for emergency procedure due to the uncertain timing . We were called for admission. HOSPITAL COURSE: The patient was seen and examined by Dr. Lloyd in the emergency department. The pa dontae was admitted to the [facility]. He has passed the window for TPA. He was treated conservatively. Aspirin started in the ER and was kept n.p.o. until he would be evaluated. Physical therapy and occu pational therapy were consulted. MRI, Neurology consultation, echocardiogram, and lipid profile were ordered. On 09/18/2017, the patient was seen by Dr. Donaldo Marlow as he was an [facility] patient. He was stable fo r transfer to the stroke floor at that point. He was seen by Dr. Simran Rossi in the evening of 2017, and recommended echocardiogram, OT, PT, and speech. He is continued on aspirin and statin. The patient was seen by Speech and recommended modified barium swallow, subsequently showed penetrati on of thin material noted during swallow due to timing of airway closure and it was decided to be mod erate to severe functional impairment with high aspiration risk. He was not safe for any solid food, any liquid food, and was placed on n.p.o. status. At that time, Gastroenterology was consulted for a PEG tube placement. The patient continued to remain stable. He worked with physical therapy and occupational therapy. Danna sherwood was seen by Dr. Car on 09/21/2017 and on 09/22/2017 was taken for EGD and gastrostomy tube pl acement. On 09/22/2017 to 09/25/2017, the patient remained stable. A referral to rehabilitation was begun and insurance approval was finally obtained on 09/25/2017. He was stable for discharge to [facility] for rehabilitation. DISCHARGE PHYSICAL EXAMINATION: The patient was seen and examined on the day of discharge. Discharg e plan and disposition were discussed with the patient and his face to face at the bedside at e day of discharge. DISCHARGE MEDICATIONS: 1. Tylenol 650 mg per tube as needed. 2. Aspirin 325 mg per tube daily. 3. Adderall 30 mg per tube b.i.d. 4. Lisinopril 10 mg per tube daily. 5. Pancrelipase 12,000 units 1 capsule per tube daily. 6. Crestor 5 mg per tube at bedtime. 7. Trazodone 1-2 tablets per tube at bedtime as needed. DISCHARGE DIET: The patient is n.p.o. Dietary recommended standard formula with fiber 8 cans daily, 1-2 cans at regular intervals as tolerated to get his total volume in. DISPOSITION: The patient being discharged to [facility]. DISCHARGE ACTIVITY: Neurologic and cardiopulmonary limits. PT, OT, and ST have been ordered.
[2017-09-25 16:00] VITALS: BP 137/60; TEMP 97.6
== END 2017-09-25 17:24 | DRG 65 ==
LOC: ERS 17:17 → IMCU/EMU 18:35 → 2SE 09-18 18:21
PROVIDERS: ADMIT Internal Medicine; ATTEND Internal Medicine
PROC: 0DJ08ZZ Inspection of Upper Intestinal Tract, Via Natural or Artificial Opening Endoscopic (ICD-10-PCS; principal; 2017-09-22)
PROC: 0DH63UZ Insertion of Feeding Device into Stomach, Percutaneous Approach (ICD-10-PCS; 2017-09-22)
PROC: 3E0G76Z Introduction of Nutritional Substance into Upper GI, Via Natural or Artificial Opening (ICD-10-PCS; 2017-09-22)
DX: I63.032 Cerebral infarction due to thrombosis of left carotid artery (principal); G81.91 Hemiplegia, unspecified affecting right dominant side; R13.12 Dysphagia, oropharyngeal phase; R47.01 Aphasia; K26.9 Duodenal ulcer, unspecified as acute or chronic, without hemorrhage or perforation; F17.210 Nicotine dependence, cigarettes, uncomplicated; I10 Essential (primary) hypertension; F32.9 Major depressive disorder, single episode, unspecified; F41.9 Anxiety disorder, unspecified; K29.80 Duodenitis without bleeding; E78.5 Hyperlipidemia, unspecified; K52.9 Noninfective gastroenteritis and colitis, unspecified
CPT/HCPCS: 0042T; 36415; 36416; 51701; 70450; 70496; 70498; 70551; 71045; 74230; 80048; 80053; 80061; 80306; 80307; 81003; 82140; 82550; 82553; 83690; 83880; 84146; 84443; 84484; 85025; 85610; 85730; 93005; 93306; 96360; 96361; 99406; J2270; A4216; G8978-GP-CM; G8979-GP-CK; G8987-GO-CM; G8988-GO-CK; G8996-GN-CM; G8996-GN-CN; G8997-GN-CI; G8997-GN-CJ; G8997-GN-CK; J0456; J0696; J1650; J2001; J2060; J2704; J7050; S0028

== ENCOUNTER 2017-11-01 21:02 | Emergency (ER) | payer BC, MEDICARE ==
[2017-11-01] MEDS ORDERED: Bisacodyl 10 MG SUPP ONE (21:51)
--- NOTE | 2017-11-01 22:19 | RAD ---
EXAM: ABDOMEN ONE VIEW: 11/01/17 HISTORY: Severe abdominal pain due to constipation. No bowel movement for one week. Decreased urine output. COMPARISON: None. FINDINGS: One view abdomen: Nonspecific bowel gas pattern. No pneumoperitoneum. No suspicious densities in the abdomen or pelvis. There is a mild to moderate amount of fecal material scattered throughout the majority of the colon. There is a moderate amount of fecal material in the sigmoid colon and rectum. Correlate clinically. G iven concern for constipation, better interrogation with abdomen and pelvic CT is recommended. IMPRESSION: Findings as above. Consider CT. POS: PPP
== END 2017-11-01 23:05 | disposition home or self-care (01) ==
LOC: SCSER 21:02
DX: K59.00 Constipation, unspecified (principal); I10 Essential (primary) hypertension; F32.9 Major depressive disorder, single episode, unspecified; Z87.891 Personal history of nicotine dependence; Z86.73 Personal history of transient ischemic attack (TIA), and cerebral infarction without residual deficits; Z79.899 Other long term (current) drug therapy
CPT/HCPCS: 74018

== ENCOUNTER 2023-10-29 17:09 | Emergency (ER) | payer MEDICARE ==
[2023-10-29] MEDS ORDERED: HYDROcodone/Acetaminophen 5/325 mg Tablet ONE ×2 (17:57→20:05)
[2023-10-29] MEDS ORDERED: Cephalexin 250 MG CAP ONE (20:05)
== END 2023-10-29 20:20 | disposition home or self-care (01) ==
LOC: ERS 17:09
DX: L03.115 Cellulitis of right lower limb (principal); I10 Essential (primary) hypertension; F17.290 Nicotine dependence, other tobacco product, uncomplicated; Z79.82 Long term (current) use of aspirin; Z79.899 Other long term (current) drug therapy; Z86.73 Personal history of transient ischemic attack (TIA), and cerebral infarction without residual deficits; M79.671 Pain in right foot; M79.89 Other specified soft tissue disorders
CPT/HCPCS: 80053; 83605; 83880; 85025

== ENCOUNTER 2024-02-26 06:26 | Emergency (ER) | payer MEDICARE ==
[2024-02-26] MEDS ORDERED: Lidocaine 1% w/Epinephrine 1:100K 20 ML VIAL ONE (07:38)
== END 2024-02-26 09:51 | disposition home or self-care (01) ==
LOC: ERS 06:26
DX: S01.411A Laceration without foreign body of right cheek and temporomandibular area, initial encounter (principal); F32.A Depression, unspecified; D46.9 Myelodysplastic syndrome, unspecified; W05.0XXA Fall from non-moving wheelchair, initial encounter; Y93.89 Activity, other specified; Z86.73 Personal history of transient ischemic attack (TIA), and cerebral infarction without residual deficits; Z55.0 Illiteracy and low-level literacy
CPT/HCPCS: 11042

== ENCOUNTER 2025-04-07 09:00 | Emergency (ER) | payer MEDICARE ==
[2025-04-07] MEDS ORDERED: Ketorolac Tromethamine 30 MG (1 mL) VIAL ONE (11:01)
== END 2025-04-07 11:01 | disposition home or self-care (01) ==
LOC: ERS 09:00
DX: S22.31XA Fracture of one rib, right side, initial encounter for closed fracture (principal); E78.5 Hyperlipidemia, unspecified; F17.290 Nicotine dependence, other tobacco product, uncomplicated; Z79.899 Other long term (current) drug therapy; W05.0XXA Fall from non-moving wheelchair, initial encounter
CPT/HCPCS: 70450; 71250; 72125; 72131; J1885; J2270; Q0162; 96372

== ENCOUNTER 2025-04-09 22:26 | Inpatient (IN) | payer MEDICARE ==
[2025-04-09 23:22] LABS: Hematocrit 18.7 % (42.0-52.0); Hemoglobin 6.1 g/dL (14.0-18.0); Mean Corpuscular Hemoglobin 38.4 pg (27.0-31.0); Mean Corpuscular Volume 117.6 fL (78.0-98.0); Platelet Count 28 10x3/uL (130-400); Red Blood Cell (RBC) Count 1.59 mill/uL (4.70-6.10); White Blood Cell (WBC) Count 1.81 10x3/uL (4.8-10.8)
[2025-04-09 23:29] LABS: ALT (SGPT) 9 U/L (Less than 45); AST (SGOT) 19 U/L (11-34); Albumin 3.5 g/dL (3.1-4.5); Alkaline Phosphatase 86 U/L (40-110); Anion Gap 10 mmol/L (10-20); BUN (Urea Nitrogen) 28 mg/dL (8.4-25.7); Bilirubin, Total 0.5 mg/dL (0.3-1.2); Calc. Creatinine Clearance 0 mL/min (70-130); Calcium 7.9 mg/dL (7.8-10.44); Carbon Dioxide 22 mmol/L (23-31); Chloride 112 mmol/L (98-107); Globulin 2.4 g/dL (2.4-3.5); Glucose 114 mg/dL (80-115); Lipase 118 U/L (8-78); Magnesium 2.1 mg/dL (1.6-2.6); Potassium 3.8 mmol/L (3.5-5.1); Sodium 140 mmol/L (136-145)
[2025-04-10 00:02] LABS: Macrocytosis MODERATE=16-30 cells (100X) (0-5/hpf)
[2025-04-10 00:04] LABS: Platelet Adequacy Comment Platelets Decreased
[2025-04-10] MEDS ORDERED: Senokot S 8.6-50 MG TAB PO PRN (02:54)
[2025-04-10] MEDS ORDERED: Glucagon 1 MG/ML KIT IM PRN (03:00)
[2025-04-10] MEDS ORDERED: Dextrose 50% Abboject 50 ML SYRINGE SLOW IVP PRN (03:00)
[2025-04-10 04:28] LABS: Bacteria/HPF None Seen HPF (None Seen); CAUTI Indications for Culture Pelvic or flank pain; Glucose, Urine (Dipstick) Normal (Negative); Leukocyte Negative Leu/uL (Negative); Protein, Urine (Dipstick) Negative (Neg-Trace); RBC/HPF 0-3 HPF (0-3); Specific Gravity, Urine 1.026 (1.002-1.036); WBC/HPF 0-3 HPF (0-3)
[2025-04-10] MEDS: Acetaminophen 325 MG TAB PO SCH (04:46)
[2025-04-10 04:48] LABS: Urine Culture Reflex No No
[2025-04-10 05:07] VITALS: BMI 32.3
[2025-04-10] MEDS: HYDROcodone/Acetaminophen 7.5/325 mg Tablet PO PRN (06:51)
[2025-04-10] MEDS: PNEUMOC 20-VAL CONJ-DIP CRM/PF 0.5 ML SYRINGE IM ONE (09:46)
[2025-04-10] MEDS: Ibuprofen 200 MG TAB PO PRN (09:54)
[2025-04-10 13:30] LABS: Hematocrit 19.7 % (42.0-52.0); Hemoglobin 6.8 g/dL (14.0-18.0); Mean Corpuscular Hemoglobin 37.0 pg (27.0-31.0); Mean Corpuscular Volume 107.1 fL (78.0-98.0); Platelet Count 21 10x3/uL (130-400); Red Blood Cell (RBC) Count 1.84 mill/uL (4.70-6.10); White Blood Cell (WBC) Count 1.67 10x3/uL (4.8-10.8)
[2025-04-10 13:52] LABS: Anisocytosis MARKED = >30 cells HPF (0-5); Burr Cells SLIGHT = 2-5 cells HPF (0-1); Macrocytosis MODERATE=16-30 cells HPF (0-5); Microcytosis SLIGHT = 6-15 cells HPF (0-5); Nucleated RBC (Manual Ct) 2 % (0); Ovalocytes SLIGHT = 2-5 cells HPF (0-1); Platelet Adequacy Comment Significant Decrease; Polychromasia SLIGHT = 2-3 cells HPF (0-2); Schistocytes SLIGHT = 2-5 cells HPF (0-1); Smudge Cells 4.0 %
[2025-04-10] MEDS: Gabapentin 300 MG CAP PO SCH (21:06)
[2025-04-10] MEDS: Rosuvastatin 20 MG TAB PO SCH (21:07)
[2025-04-11 01:38] LABS: Hematocrit 20.9 % (42.0-52.0); Hemoglobin 7.1 g/dL (14.0-18.0); Platelet Count 19 10x3/uL (130-400)
[2025-04-11 05:28] LABS: Hematocrit 22.7 % (42.0-52.0); Hemoglobin 7.6 g/dL (14.0-18.0); Mean Corpuscular Hemoglobin 35.0 pg (27.0-31.0); Mean Corpuscular Volume 104.6 fL (78.0-98.0); Platelet Count 21 10x3/uL (130-400); Red Blood Cell (RBC) Count 2.17 mill/uL (4.70-6.10); White Blood Cell (WBC) Count 1.50 10x3/uL (4.8-10.8)
[2025-04-11 05:45] LABS: ALT (SGPT) 10 U/L (Less than 45); AST (SGOT) 20 U/L (11-34); Albumin 3.0 g/dL (3.1-4.5); Alkaline Phosphatase 73 U/L (40-110); Anion Gap 8 mmol/L (10-20); BUN (Urea Nitrogen) 16 mg/dL (8.4-25.7); Bilirubin, Total 0.9 mg/dL (0.3-1.2); Calc. Creatinine Clearance 184 mL/min (70-130); Calcium 8.1 mg/dL (7.8-10.44); Carbon Dioxide 26 mmol/L (23-31); Chloride 107 mmol/L (98-107); Globulin 2.6 g/dL (2.4-3.5); Glucose 110 mg/dL (80-115); Potassium 4.0 mmol/L (3.5-5.1); Sodium 137 mmol/L (136-145)
[2025-04-11 05:54] LABS: Anisocytosis SLIGHT = 6-15 cells HPF (0-5); Macrocytosis SLIGHT = 6-15 cells HPF (0-5); Platelet Adequacy Comment Platelets Decreased; Polychromasia SLIGHT = 2-3 cells HPF (0-2)
[2025-04-11] MEDS: Amiodarone 200 MG TAB PO SCH (08:57)
[2025-04-11] MEDS: Gabapentin 300 MG CAP PO SCH (08:57)
[2025-04-11] MEDS: Multivitamin w/Zinc Stress 1 TAB PO SCH (08:58)
[2025-04-11] MEDS: valACYclovir 500 MG TAB PO SCH (08:58)
[2025-04-11] MEDS: Cholecalciferol 1,000 UNITS (25 MCG) TAB PO SCH (08:58)
[2025-04-11] MEDS ORDERED: VITAMIN K2 40 MCG PO SCH (09:00)
[2025-04-11 11:32] VITALS: BP 94/59; TEMP 98.4
== END 2025-04-11 11:25 | disposition home or self-care (01) | DRG 809 ==
LOC: ERS 22:26 → MSONC 04-10 02:52 → OBSVTOIN 04-11 08:27
PROVIDERS: ADMIT Student in an Organized Health Care Education/Training Program; ATTEND Student in an Organized Health Care Education/Training Program
PROC: 30233N1 Transfusion of Nonautologous Red Blood Cells into Peripheral Vein, Percutaneous Approach (ICD-10-PCS; principal; 2025-04-11)
DX: D61.810 Antineoplastic chemotherapy induced pancytopenia (principal); I69.951 Hemiplegia and hemiparesis following unspecified cerebrovascular disease affecting right dominant side; S22.31XA Fracture of one rib, right side, initial encounter for closed fracture; D46.9 Myelodysplastic syndrome, unspecified; G89.29 Other chronic pain; F39 Unspecified mood [affective] disorder; E78.5 Hyperlipidemia, unspecified; E11.9 Type 2 diabetes mellitus without complications; I48.0 Paroxysmal atrial fibrillation; Z92.21 Personal history of antineoplastic chemotherapy; Z98.890 Other specified postprocedural states; F17.210 Nicotine dependence, cigarettes, uncomplicated; Z66 Do not resuscitate; F32.A Depression, unspecified; Z79.899 Other long term (current) drug therapy
CPT/HCPCS: 36415; 36430; 70450; 71045; 72125; 80053; 81001; 83690; 83735; 83880; 84484; 85025; 86850; 86900; 86901; 93005; 96374; G0378; J2270; P9016

== ENCOUNTER 2025-04-28 10:42 | Day surgery (SDC) | payer MEDICARE ==
[2025-04-28] MEDS ORDERED: diphenhydrAMINE 25 MG CAP PO SCH (11:15)
[2025-04-28] MEDS ORDERED: Acetaminophen 500 MG TAB ONE (11:46)
[2025-04-28] MEDS: Acetaminophen 500 MG TAB PO SCH (11:47)
[2025-04-28 14:33] VITALS: BP 114/73; TEMP 98.2
== END 2025-04-28 14:29 | disposition home or self-care (01) ==
LOC: ONC/OP 10:42
PROVIDERS: ATTEND Internal Medicine Hematology & Oncology
DX: D64.9 Anemia, unspecified (principal); D69.6 Thrombocytopenia, unspecified; D46.22 Refractory anemia with excess of blasts 2; D53.9 Nutritional anemia, unspecified
CPT/HCPCS: 36430; 86850; 86900; 86901; 86920; P9016; 36415; 80053; 82607; 82728; 82746; 83540; 83550